=== PATIENT | male | born 1945 | race African-American/Black ===

== ENCOUNTER 2017-05-28 09:14 | Emergency (ER) | payer OTHER, MEDICAID ==
[~2017-05-28] VITALS: Ht 175.3 cm; Wt 82.0 kg
[~2017-05-28 09:14] MED LIST: UNKNOWN MEDICATION
[2017-05-28 11:45] VITALS: BP 142/76
== END 2017-05-28 12:29 | disposition home or self-care (01) ==
LOC: ER 09:51
DX: F20.0 Paranoid schizophrenia (principal); I10 Essential (primary) hypertension; E78.00 Pure hypercholesterolemia, unspecified
CPT/HCPCS: 99284

== ENCOUNTER 2017-06-04 14:34 | Emergency (ER) | payer OTHER, MEDICAID ==
[~2017-06-04] VITALS: Ht 172.7 cm; Wt 82.0 kg
[2017-06-05 03:03] LABS: BASOPHILS % 0.6 % (0.0-2.0); EOSINOPHILS % 2.7 % (0.0-5.0); HEMATOCRIT. 40.8 % (42.0-52.0); HEMOGLOBIN. 13.7 g/dL (14.0-18.0); LYMPHOCYTES % 26.2 % (20.0-50.0); MEAN CORPUSCULAR VOLUME 86.2 fL (80.0-94.0); MEAN PLATELET VOLUME 7.5 fl (7.4-10.4); MONOCYTES % 11.8 % (2.0-8.0); NEUTROPHILS % 58.7 % (40.0-76.0); PLATELET 274 x1000/uL (130-400); RED BLOOD CELL COUNT 4.73 mill/uL (4.7-6.1); RED CELL DISTRIBUTION WIDTH 12.8 % (11.6-14.6)
[2017-06-05 03:35] LABS: CARBON DIOXIDE 30 mEq/L (21-32); CHLORIDE 104 mEq/L (98-107); ETHANOL BLOOD < 10 mg/dL
[2017-06-05 04:04] LABS: *AMPHETAMINES SCREEN URINE NEGATIVE (NEGATIVE); *BARBITURATES SCREEN URINE NEGATIVE (NEGATIVE); *BENZODIAZEPINES SCREEN URINE NEGATIVE (NEGATIVE); *COCAINE SCREEN URINE NEGATIVE (NEGATIVE); CANNABINOID URINE SCREEN NEGATIVE (NEGATIVE); METHADONE URINE SCREEN NEGATIVE (NEGATIVE); OPIATES URINE SCREEN NEGATIVE (NEGATIVE); PHENCYCLIDINE URINE SCREEN NEGATIVE (NEGATIVE)
[2017-06-05 12:48] VITALS: BP 130/66
== END 2017-06-05 12:56 | disposition home or self-care (01) ==
LOC: ER 14:35
DX: Z04.41 Encounter for examination and observation following alleged adult rape (principal); F20.9 Schizophrenia, unspecified; Z91.14 Patient's other noncompliance with medication regimen; I10 Essential (primary) hypertension; E78.00 Pure hypercholesterolemia, unspecified
CPT/HCPCS: 36415; 80053; 80305; 85025; 99284; G0482

== ENCOUNTER 2017-06-08 11:33 | Emergency (ER) | payer OTHER, MEDICAID ==
[~2017-06-08] VITALS: Ht 172.7 cm; Wt 82.0 kg
[2017-06-08 16:39] VITALS: BP 138/63
== END 2017-06-08 16:42 | disposition home or self-care (01) ==
LOC: ER 14:35
DX: T74.21XA Adult sexual abuse, confirmed, initial encounter (principal); F79 Unspecified intellectual disabilities; I10 Essential (primary) hypertension; E78.00 Pure hypercholesterolemia, unspecified
CPT/HCPCS: 99281

== ENCOUNTER 2017-07-06 15:10 | Emergency (ER) | payer OTHER, MEDICAID ==
[~2017-07-06] VITALS: Ht 177.8 cm; Wt 85.0 kg
[2017-07-06] MEDS ORDERED: IBUPROFEN 800MG TABLET PO ONE (15:45)
[2017-07-06] MEDS ORDERED: BACITRACIN ZINC OINT UDPKT TOP ONE (15:45)
[2017-07-06 17:03] VITALS: BP 148/74
== END 2017-07-06 17:21 | disposition home or self-care (01) ==
LOC: ER 15:37
DX: S80.212A Abrasion, left knee, initial encounter (principal); S90.812A Abrasion, left foot, initial encounter; I10 Essential (primary) hypertension; E78.00 Pure hypercholesterolemia, unspecified; W18.30XA Fall on same level, unspecified, initial encounter; Y92.89 Other specified places as the place of occurrence of the external cause; Y93.89 Activity, other specified; Y99.8 Other external cause status
CPT/HCPCS: 99283

== ENCOUNTER 2017-10-04 17:14 | Emergency (ER) | payer OTHER, MEDICAID ==
[~2017-10-04] VITALS: Ht 172.7 cm; Wt 91.0 kg
[2017-10-04 20:39] LABS: BASOPHILS % 0.6 % (0.0-2.0); EOSINOPHILS % 1.7 % (0.0-5.0); HEMATOCRIT. 36.3 % (42.0-52.0); HEMOGLOBIN. 12.2 g/dL (14.0-18.0); LYMPHOCYTES % 12.6 % (20.0-50.0); MEAN CORPUSCULAR HEMOGLOBIN 28.6 pg (28.0-32.0); MEAN PLATELET VOLUME 7.5 fl (7.4-10.4); NEUTROPHILS % 75.1 % (40.0-76.0); PLATELET 272 x1000/uL (130-400); RED BLOOD CELL COUNT 4.27 mill/uL (4.7-6.1); RED CELL DISTRIBUTION WIDTH 13.3 % (11.6-14.6)
[2017-10-04 20:50] LABS: AMMONIA 29 uMol/L (<32)
[2017-10-04 21:08] LABS: CHLORIDE 105 mEq/L (98-107)
[2017-10-04 21:12] LABS: CARBON DIOXIDE 28 mEq/L (21-32)
[2017-10-04 21:15] LABS: ETHANOL BLOOD < 10 mg/dL
[2017-10-04 23:34] LABS: CLARITY URINE CLEAR (CLEAR); COLOR URINE YELLOW (YELLOW); GLUCOSE URINE NEGATIVE (NEGATIVE); KETONES URINE TRACE (NEGATIVE); LEUKOCYTE ESTERASE URINE NEGATIVE (NEGATIVE); NITRITE URINE NEGATIVE (NEGATIVE); OCCULT BLOOD URINE NEGATIVE (NEGATIVE); PH URINE 5.5 (4.5-8.0); PROTEIN URINE NEGATIVE (NEGATIVE); SPECIFIC GRAVITY URINE 1.026 (1.005-1.030)
[2017-10-04 23:50] LABS: *AMPHETAMINES SCREEN URINE NEGATIVE (NEGATIVE); *BARBITURATES SCREEN URINE NEGATIVE (NEGATIVE); *BENZODIAZEPINES SCREEN URINE NEGATIVE (NEGATIVE); *COCAINE SCREEN URINE NEGATIVE (NEGATIVE); CANNABINOID URINE SCREEN NEGATIVE (NEGATIVE); METHADONE URINE SCREEN NEGATIVE (NEGATIVE); OPIATES URINE SCREEN NEGATIVE (NEGATIVE); PHENCYCLIDINE URINE SCREEN NEGATIVE (NEGATIVE)
[2017-10-05 01:45] VITALS: BP 129/74
== END 2017-10-05 03:20 | disposition home or self-care (01) ==
LOC: ER 18:00
DX: R41.82 Altered mental status, unspecified (principal); K62.89 Other specified diseases of anus and rectum; E78.00 Pure hypercholesterolemia, unspecified; I10 Essential (primary) hypertension; Y09 Assault by unspecified means; Z91.410 Personal history of adult physical and sexual abuse
CPT/HCPCS: 36415; 70450; 80053; 80305; 80307; 80329; 81003; 82140; 83605; 84443; 85025; 87186; 93005; 99285; G0482

== ENCOUNTER 2018-09-05 08:01 | Emergency (ER) | payer MEDICARE, MEDICAID ==
[~2018-09-05] VITALS: Ht 182.9 cm; Wt 94.0 kg
[2018-09-05 12:00] LABS: BASOPHILS % 0.5 % (0.0-2.0); EOSINOPHILS % 1.1 % (0.0-5.0); HEMATOCRIT. 40.1 % (42.0-52.0); HEMOGLOBIN. 13.3 g/dL (14.0-18.0); MEAN CORPUSCULAR HEMOGLOBIN 28.5 pg (28.0-32.0); MEAN CORPUSCULAR VOLUME 85.8 fL (80.0-94.0); MEAN PLATELET VOLUME 7.8 fl (7.4-10.4); MONOCYTES % 13.7 % (2.0-8.0); NEUTROPHILS % 66.7 % (40.0-76.0); PLATELET 237 x1000/uL (130-400); RED BLOOD CELL COUNT 4.67 mill/uL (4.7-6.1); RED CELL DISTRIBUTION WIDTH 13.5 % (11.6-14.6)
[2018-09-05 12:05] LABS: CHLORIDE 106 mEq/L (98-107)
[2018-09-05 12:14] LABS: ETHANOL BLOOD < 10 mg/dL
[2018-09-05 12:14] LABS: CLARITY URINE CLEAR (CLEAR); COLOR URINE YELLOW (YELLOW); KETONES URINE NEGATIVE (NEGATIVE); LEUKOCYTE ESTERASE URINE NEGATIVE (NEGATIVE); NITRITE URINE NEGATIVE (NEGATIVE); OCCULT BLOOD URINE 1+ (NEGATIVE); PH URINE 5.5 (4.5-8.0); PROTEIN URINE NEGATIVE (NEGATIVE); SPECIFIC GRAVITY URINE 1.011 (1.005-1.030); UROBILINOGEN URINE 0.2 E.U./dL (0.2-1.0)
[2018-09-05 12:29] LABS: *AMPHETAMINES SCREEN URINE NEGATIVE (NEGATIVE); *BARBITURATES SCREEN URINE NEGATIVE (NEGATIVE); *BENZODIAZEPINES SCREEN URINE NEGATIVE (NEGATIVE); *COCAINE SCREEN URINE NEGATIVE (NEGATIVE)
[2018-09-05 12:30] LABS: CANNABINOID URINE SCREEN NEGATIVE (NEGATIVE); METHADONE URINE SCREEN NEGATIVE (NEGATIVE); OPIATES URINE SCREEN NEGATIVE (NEGATIVE); PHENCYCLIDINE URINE SCREEN NEGATIVE (NEGATIVE)
[2018-09-05 17:01] VITALS: BP 160/78
== END 2018-09-05 17:04 | disposition home or self-care (01) ==
LOC: ER 08:01
DX: I10 Essential (primary) hypertension (principal); F22 Delusional disorders
CPT/HCPCS: 36415; 80053; 80305; 81003; 85025; 99284; G0482